=== PATIENT | female | born 1995 | race Caucasian/White ===

== ENCOUNTER 2020-03-24 21:06 | Emergency (ER) | payer OTHER ==
[2020-03-24 21:22] VITALS: BP 114/72; PULSE 94; TEMP 98.3; BMI 30.9
[2020-03-25 00:10] LABS: HEMOGLOBIN 12.4 GM/dL (10.7-15.3); MCH 27.9 pg (25.7-33.7); MCHC 33.4 g/dl (32.0-36.0); MEAN CELL VOLUME 83.5 fl (80-96); MEAN PLT VOLUME 7.8 fl (7.5-11.1); PLATELET COUNT 361 K/MM3 (134-434); RBC 4.43 M/mm3 (3.60-5.2); RDW 13.7 % (11.6-15.6); WHITE BLOOD COUNT 10.3 K/mm3 (4.0-10.0)
== END 2020-03-25 01:50 | disposition home or self-care (01) ==
LOC: JER 21:06
DX: O20.0 Threatened abortion (principal)
CPT/HCPCS: 36415; 76817-TC; 84702; 85027; 86850; 86900; 86901; 99284-25

== ENCOUNTER 2020-05-01 13:39 | Emergency (ER) | payer OTHER ==
[2020-05-01 13:44] VITALS: TEMP 97.2; BMI 29.7
[2020-05-01 14:17] LABS: BASO % 0.5 % (0-2.0); EOS % 0.7 % (0-4.5); HEMATOCRIT 36.1 % (32.4-45.2); LYMPH % 28.3 % (8-40); MCH 27.2 pg (25.7-33.7); MCHC 33.1 g/dl (32.0-36.0); MEAN CELL VOLUME 82.1 fl (80-96); MEAN PLT VOLUME 7.9 fl (7.5-11.1); MONO % 4.9 % (3.8-10.2); NEUT % 65.6 % (42.8-82.8); PLATELET COUNT 310 K/MM3 (134-434); RDW 13.5 % (11.6-15.6); WHITE BLOOD COUNT 12.5 K/mm3 (4.0-10.0)
[2020-05-01 14:19] VITALS: BP 117/72
[2020-05-01 14:50] LABS: POTASSIUM 3.6 mmol/L (3.5-5.1)
[2020-05-01 14:52] LABS: ALBUMIN 3.2 g/dl (3.4-5.0); BLOOD UREA NITROGEN 6.1 mg/dL (7-18); CALCIUM 9.1 mg/dL (8.5-10.1)
[2020-05-01 14:56] LABS: BILIRUBIN,TOTAL 0.3 mg/dL (0.2-1); CREATININE 0.5 mg/dL (0.55-1.3); TOT PROT 6.7 g/dl (6.4-8.2)
[2020-05-01 15:23] LABS: EPI CELLS >36 /uL (0-25.1); HYALINE CASTS 5 /uL (0-3.1); URINE APPEARANCE CLOUDY; URINE BACTERIA 1587 /uL (0-1359); URINE BILIRUBIN NEGATIVE (NEGATIVE); URINE COLOR YELLOW; URINE GLUCOSE (UA) NEGATIVE (NEGATIVE); URINE KETONE 1+ (NEGATIVE); URINE LEUK ESTERASE 1+ (NEGATIVE); URINE NITRITE NEGATIVE (NEGATIVE); URINE PROTEIN TRACE (NEGATIVE); URINE RBC 22 /uL (0-23.9); URINE WBC 61 /uL (0-25.8)
[2020-05-01 16:19] VITALS: PULSE 80
== END 2020-05-01 16:19 | disposition home or self-care (01) ==
LOC: JER 13:39
DX: O03.9 Complete or unspecified spontaneous abortion without complication (principal)
CPT/HCPCS: 36415; 76801-TC; 80053; 81003; 85025; 87086; 99284-25

== ENCOUNTER 2020-11-14 20:19 | Inpatient (IN) | payer OTHER ==
[2020-11-14 22:02] VITALS: BMI 35.0
[2020-11-14] MEDS ORDERED: AMPICILLIN SODIUM 2 GM VIAL ONE (22:06)
[2020-11-14] MEDS ORDERED: AMPICILLIN - 2 GM in SODIUM CHLORIDE 100 ML IVPB ONE (22:10)
[2020-11-14 22:31] LABS: BASO % 0.4 % (0-2.0); EOS % 0.2 % (0-4.5); HEMATOCRIT 35.6 % (32.4-45.2); HEMOGLOBIN 11.8 GM/dL (10.7-15.3); LYMPH % 14.1 % (8-40); MCH 27.2 pg (25.7-33.7); MCHC 33.2 g/dl (32.0-36.0); MEAN CELL VOLUME 81.9 fl (80-96); MEAN PLT VOLUME 8.6 fl (7.5-11.1); MONO % 6.1 % (3.8-10.2); NEUT % 79.2 % (42.8-82.8); PLATELET COUNT 307 10^3/uL (134-434); RBC 4.34 M/mm3 (3.60-5.2); RDW 14.3 % (11.6-15.6); WHITE BLOOD COUNT 16.4 K/mm3 (4.0-10.0)
[2020-11-14] MEDS ORDERED: OXYTOCIN 20 UNITS in 0.9% NS 20 UNIT/1,000 ML INFUS.BAG IV ONE (22:32)
[2020-11-14] MEDS: ELECTROLYTE-148 SOLN 1,000 ML IV SCH (22:45)
[2020-11-14 22:51] LABS: CALCIUM 8.6 mg/dL (8.5-10.1)
[2020-11-14 22:52] LABS: BLOOD UREA NITROGEN 8.2 mg/dL (7-18)
[2020-11-14 22:55] LABS: CREATININE 0.6 mg/dL (0.55-1.3)
[2020-11-15 00:03] LABS: INR 0.83 (0.83-1.09); PROTHROMBIN TIME (PATIENT) 10.2 SEC (9.7-13.0)
[2020-11-15] MEDS ORDERED: CITRIC ACID/SODIUM CITRATE 30 ML UNIT-DOSE CUP PO ONE (00:03)
[2020-11-15 00:06] LABS: ACTIVATED PTT 27.4 SECONDS (25.2-36.5)
[2020-11-15] MEDS ORDERED: morphine SULFATE/PF 1 MG/2 ML (2cc Syringe - QUVA) EP ONE (00:40)
[2020-11-15] MEDS ORDERED: KETOROLAC TROMETHAMINE 30 MG/1 ML VIAL ONE (00:43)
[2020-11-15] MEDS ORDERED: OXYTOCIN 10 UNIT/ML 10ML MDV ONE (00:43)
[2020-11-15] MEDS ORDERED: ONDANSETRON 4 MG/2 ML VIAL ONE (00:43)
[2020-11-15] MEDS ORDERED: ceFAZolin SODIUM 1 GM VIAL ONE ×2 (01:44→09:39)
[2020-11-15] MEDS ORDERED: AMPICILLIN - 1 GM in SODIUM CHLORIDE 100 ML IVPB SCH (02:00)
[2020-11-15] MEDS: OXYTOCIN 20 UNITS in 0.9% NS 20 UNIT/1,000 ML INFUS.BAG IV SCH (02:25)
[2020-11-15] MEDS ORDERED: SENNOSIDES/DOCUSATE COMBO (SENNA PLUS) TABLET (UD) PO PRN (02:27)
[2020-11-15] MEDS ORDERED: oxyCODONE HCL 5 MG TABLET PO PRN (02:27)
[2020-11-15] MEDS ORDERED: BENZOCAINE 28 GM HEMORRHOIDAL OINTMENT TP PRN (02:27)
[2020-11-15] MEDS ORDERED: METHYLERGONOVINE MALEATE 0.2 MG/1 ML AMP IM PRN (02:27)
[2020-11-15] MEDS ORDERED: BENZOCAINE 20% 57 GM BOTTLE TP PRN (02:27)
[2020-11-15] MEDS ORDERED: WITCH HAZEL 50% (TUCKS) 40 PAD/JAR PAD TP PRN (02:27)
[2020-11-15] MEDS ORDERED: IBUPROFEN 600 MG TABLET (FP) PO PRN (02:27)
[2020-11-15] MEDS ORDERED: ONDANSETRON 4 MG/2 ML VIAL IVPUSH PRN (02:34)
[2020-11-15] MEDS ORDERED: ACETAMINOPHEN 1000 MG/100 ML VIAL (NON FORMULARY) IVPB ONE (02:35)
[2020-11-15] MEDS ORDERED: OXYTOCIN 20 UNITS in 0.9% NS 20 UNIT/1,000 ML INFUS.BAG IV ONE (03:59)
[2020-11-15] MEDS: IBUPROFEN 800 MG/8 ML IJ IVPB PRN ×2 (04:33→14:26)
[2020-11-15] MEDS: FERROUS SO4 325 MG TABLET (FP) PO SCH ×2 (09:31→21:04)
[2020-11-15] MEDS: SIMETHICONE 80 MG TAB.CHEW (FP) PO PRN ×2 (09:31→22:09)
[2020-11-15] MEDS ORDERED: DEXTROSE 5%-WATER - 50 ML IVPB ONE (09:39)
[2020-11-15] MEDS: CEFAZOLIN 1 GM in DEXTROSE 5%-WATER - 50 ML IVPB SCH ×2 (09:44→18:12)
[2020-11-15] MEDS ORDERED: PRENATAL VITAMINS W/ FOLIC ACID TABLET (FP) PO SCH (10:00)
[2020-11-15] MEDS ORDERED: CEFAZOLIN 1 GM/D5W 1 GM/50 ML BAG IVPB SCH (10:00)
[2020-11-15] MEDS ORDERED: SODIUM CHLORIDE 1,000 ML IV SCH (22:15)
[2020-11-16] MEDS ORDERED: BISACODYL 10 MG SUPP.RECT RC PRN ×2 (02:30→09:24)
[2020-11-16] MEDS: CEFAZOLIN 1 GM in DEXTROSE 5%-WATER - 50 ML IVPB SCH (02:39)
[2020-11-16] MEDS ORDERED: ceFAZolin SODIUM 1 GM VIAL ONE (07:12)
[2020-11-16] MEDS ORDERED: LIDOCAINE HCL 2% JELLY (5 ML/TUBE) ONE (07:12)
[2020-11-16] MEDS ORDERED: LIDOCAINE HCL/PF 2% SDV 5ML VIAL ONE (07:12)
[2020-11-16] MEDS ORDERED: SUCCINYLCHOLINE CHLORIDE 200 MG/10 ML SYRINGE ONE (07:16)
[2020-11-16] MEDS ORDERED: PROPOFOL 20 ML ONE ×2 (07:17)
[2020-11-16] MEDS ORDERED: KETAMINE HCL 200 MG/20 ML VIAL ONE (07:17)
[2020-11-16] MEDS ORDERED: MIDAZOLAM HCL 2 MG/2 ML SINGLE DOSE VIAL ONE (07:17)
[2020-11-16] MEDS ORDERED: ACETAMINOPHEN INJECTION 100 ML IVPB ONE (08:20)
[2020-11-16] MEDS ORDERED: ceFAZolin SODIUM 1 GM VIAL IVPB ONE (08:48)
[2020-11-16] MEDS ORDERED: METHYLERGONOVINE MALEATE 0.2 MG/1 ML AMP IM PRN (09:24)
[2020-11-16] MEDS ORDERED: BENZOCAINE 20% 57 GM BOTTLE TP PRN (09:24)
[2020-11-16] MEDS ORDERED: IBUPROFEN 800 MG/8 ML IJ IVPB PRN (09:24)
[2020-11-16] MEDS ORDERED: ELECTROLYTE-148 SOLN 1,000 ML IV SCH (09:24)
[2020-11-16] MEDS ORDERED: oxyCODONE HCL 5 MG TABLET PO PRN (09:24)
[2020-11-16] MEDS ORDERED: SODIUM CHLORIDE 1,000 ML IV SCH (09:24)
[2020-11-16] MEDS ORDERED: BENZOCAINE 28 GM HEMORRHOIDAL OINTMENT TP PRN (09:24)
[2020-11-16] MEDS ORDERED: ONDANSETRON 4 MG/2 ML VIAL IVPUSH PRN (09:24)
[2020-11-16] MEDS ORDERED: WITCH HAZEL 50% (TUCKS) 40 PAD/JAR PAD TP PRN (09:24)
[2020-11-16] MEDS ORDERED: LACTATED RINGERS SOLUTION 1,000 ML IV SCH (11:30)
[2020-11-16 12:38] LABS: BASO % 0.2 % (0-2.0); EOS % 0.2 % (0-4.5); HEMATOCRIT 27.5 % (32.4-45.2); LYMPH % 12.3 % (8-40); MCH 27.5 pg (25.7-33.7); MCHC 32.9 g/dl (32.0-36.0); MEAN CELL VOLUME 83.5 fl (80-96); MONO % 5.2 % (3.8-10.2); NEUT % 82.1 % (42.8-82.8); PLATELET COUNT 279 10^3/uL (134-434); RBC 3.29 M/mm3 (3.60-5.2); RDW 14.8 % (11.6-15.6); WHITE BLOOD COUNT 17.1 K/mm3 (4.0-10.0)
[2020-11-16] MEDS: PRENATAL VITAMINS W/ FOLIC ACID TABLET (FP) PO SCH (16:44)
[2020-11-16] MEDS: FERROUS SO4 325 MG TABLET (FP) PO SCH (16:44)
[2020-11-16] MEDS: IBUPROFEN 600 MG TABLET (FP) PO PRN ×2 (16:44→21:51)
[2020-11-16] MEDS: ELECTROLYTE-148 SOLN 1,000 ML IV SCH (20:29)
[2020-11-16] MEDS: OXYTOCIN 20 UNITS in 0.9% NS 20 UNIT/1,000 ML INFUS.BAG IV SCH (20:29)
[2020-11-16] MEDS: SENNOSIDES/DOCUSATE COMBO (SENNA PLUS) TABLET (UD) PO PRN (21:50)
[2020-11-16] MEDS: SIMETHICONE 80 MG TAB.CHEW (FP) PO PRN (21:50)
[2020-11-17] MEDS: FERROUS SO4 325 MG TABLET (FP) PO SCH (08:19)
[2020-11-17] MEDS: IBUPROFEN 600 MG TABLET (FP) PO PRN ×2 (08:20→21:28)
[2020-11-17] MEDS: SIMETHICONE 80 MG TAB.CHEW (FP) PO PRN (08:20)
[2020-11-17] MEDS: PRENATAL VITAMINS W/ FOLIC ACID TABLET (FP) PO SCH (10:53)
[2020-11-17] MEDS: SENNOSIDES/DOCUSATE COMBO (SENNA PLUS) TABLET (UD) PO PRN (21:28)
[2020-11-18] MEDS: FERROUS SO4 325 MG TABLET (FP) PO SCH ×3 (09:00→18:22)
[2020-11-18 09:13] LABS: BASO % 0.5 % (0-2.0); EOS % 1.7 % (0-4.5); HEMATOCRIT 26.6 % (32.4-45.2); LYMPH % 19.1 % (8-40); MCH 28.2 pg (25.7-33.7); MCHC 33.8 g/dl (32.0-36.0); MEAN CELL VOLUME 83.5 fl (80-96); MONO % 4.6 % (3.8-10.2); NEUT % 74.1 % (42.8-82.8); PLATELET COUNT 301 10^3/uL (134-434); RBC 3.18 M/mm3 (3.60-5.2); RDW 14.7 % (11.6-15.6); WHITE BLOOD COUNT 11.2 K/mm3 (4.0-10.0)
[2020-11-18] MEDS: PRENATAL VITAMINS W/ FOLIC ACID TABLET (FP) PO SCH (09:45)
[2020-11-18] MEDS: IBUPROFEN 600 MG TABLET (FP) PO PRN (09:46)
[2020-11-18] MEDS: SIMETHICONE 80 MG TAB.CHEW (FP) PO PRN (09:46)
[2020-11-19 09:21] VITALS: BP 115/71; PULSE 92; TEMP 98.6
[2020-11-19] MEDS: FERROUS SO4 325 MG TABLET (FP) PO SCH (10:30)
[2020-11-19] MEDS: PRENATAL VITAMINS W/ FOLIC ACID TABLET (FP) PO SCH (10:30)
[2020-11-19] MEDS: IBUPROFEN 600 MG TABLET (FP) PO PRN (11:09)
== END 2020-11-19 14:50 | disposition home or self-care (01) | DRG 540 ==
LOC: JDEL 20:19 → JLDR 21:25 → J3W 11-15 04:03
PROVIDERS: ADMIT Obstetrics & Gynecology; ATTEND Obstetrics & Gynecology
PROC: 10D00Z1 Extraction of Products of Conception, Low, Open Approach (ICD-10-PCS; principal; 2020-11-15)
PROC: 3E1K78Z Irrigation of Genitourinary Tract using Irrigating Substance, Via Natural or Artificial Opening (ICD-10-PCS; 2020-11-15)
PROC: 10907ZC Drainage of Amniotic Fluid, Therapeutic from Products of Conception, Via Natural or Artificial Opening (ICD-10-PCS; 2020-11-15)
PROC: 0TJB8ZZ Inspection of Bladder, Via Natural or Artificial Opening Endoscopic (ICD-10-PCS; 2020-11-16)
PROC: BT1FZZZ Fluoroscopy of Left Kidney, Ureter and Bladder (ICD-10-PCS; 2020-11-16)
PROC: BT00ZZZ Plain Radiography of Bladder (ICD-10-PCS; 2020-11-16)
DX: O99.824 Streptococcus B carrier state complicating childbirth (principal); O32.4XX0 Maternal care for high head at term, not applicable or unspecified; O33.9 Maternal care for disproportion, unspecified; R31.0 Gross hematuria; Z3A.38 38 weeks gestation of pregnancy; Z37.0 Single live birth
CPT/HCPCS: 36415; 80048; 85025; 85610; 85730; 86780; 86850; 86900; 86901; 88307-TC; 94760; C9803; J0131; U0003; U0005

== ENCOUNTER 2022-09-15 07:45 | Inpatient (IN) | payer OTHER ==
[2022-09-15] MEDS: ELECTROLYTE-148 SOLN 1,000 ML IV SCH ×2 (10:00→13:30)
[2022-09-15 12:48] VITALS: BMI 38.0
[2022-09-15] MEDS ORDERED: CITRIC ACID/SODIUM CITRATE 30 ML UNIT-DOSE CUP PO ONE (13:13)
[2022-09-15] MEDS ORDERED: morphine SULFATE/PF 1 MG/2 ML (2cc Syringe - QUVA) ONE (13:20)
[2022-09-15] MEDS ORDERED: FENTANYL CITRATE/PF 50 MCG/ML VIAL ONE ×2 (13:20→14:42)
[2022-09-15] MEDS ORDERED: LIDOCAINE HCL/PF 2% SDV 5ML VIAL ONE (14:42)
[2022-09-15] MEDS ORDERED: ePHEDrine SULFATE 50 MG/1 ML AMPULE ONE (14:45)
[2022-09-15] MEDS ORDERED: METHYLERGONOVINE MALEATE 0.2 MG/1 ML AMP IM PRN (15:30)
[2022-09-15] MEDS ORDERED: SENNOSIDES/DOCUSATE COMBO (SENNA PLUS) TABLET (UD) PO PRN (15:30)
[2022-09-15] MEDS ORDERED: ACETAMINOPHEN 325 MG TABLET (FP) PO PRN (15:30)
[2022-09-15] MEDS ORDERED: OXYTOCIN 20 UNITS in 0.9% NS 20 UNIT/1,000 ML INFUS.BAG IV ONE (15:45)
[2022-09-15] MEDS: OXYTOCIN 20 UNITS in 0.9% NS 20 UNIT/1,000 ML INFUS.BAG IV SCH (16:30)
[2022-09-15] MEDS: FERROUS SO4 325 MG TABLET (FP) PO SCH (17:41)
[2022-09-15] MEDS: IBUPROFEN 800 MG/8 ML IJ IVPB PRN (22:07)
[2022-09-16] MEDS: OXYTOCIN 20 UNITS in 0.9% NS 20 UNIT/1,000 ML INFUS.BAG IV SCH ×2 (01:15→17:43)
[2022-09-16] MEDS ORDERED: oxyCODONE HCL 5 MG TABLET PO PRN (03:30)
[2022-09-16] MEDS: IBUPROFEN 800 MG/8 ML IJ IVPB PRN (06:09)
[2022-09-16 06:27] VITALS: RESP 18
[2022-09-16 08:30] LABS: BASO % 0.1 % (0-2.0); EOS % 1.1 % (0-4.5); HEMATOCRIT 28.8 % (32.4-45.2); HEMOGLOBIN 9.4 GM/dL (10.7-15.3); LYMPH % 9.4 % (8-40); MCH 25.4 pg (25.7-33.7); MCHC 32.5 g/dl (32.0-36.0); MEAN PLT VOLUME 8.7 fl (7.5-11.1); MONO % 3.8 % (3.8-10.2); NEUT % 85.6 % (42.8-82.8); PLATELET COUNT 267 10^3/uL (134-434); RBC 3.69 M/mm3 (3.60-5.2); RDW 15.7 % (11.6-15.6); WHITE BLOOD COUNT 13.9 K/mm3 (4.0-10.0)
[2022-09-16] MEDS: guaiFENesin 200 MG/10 ML 10 ML UNIT-DOSE CUPS PO PRN ×3 (09:32→22:02)
[2022-09-16] MEDS: FERROUS SO4 325 MG TABLET (FP) PO SCH ×2 (09:32→17:40)
[2022-09-16] MEDS: PRENATAL VITAMINS W/ FOLIC ACID TABLET (FP) PO SCH (09:32)
[2022-09-16] MEDS ORDERED: BISACODYL 10 MG SUPP.RECT RC PRN (15:30)
[2022-09-16] MEDS: IBUPROFEN 600 MG TABLET (FP) PO PRN (22:02)
[2022-09-16] MEDS: SIMETHICONE 80 MG TAB.CHEW (FP) PO PRN (22:03)
[2022-09-17] MEDS: FERROUS SO4 325 MG TABLET (FP) PO SCH ×2 (08:26→18:00)
[2022-09-17] MEDS: IBUPROFEN 600 MG TABLET (FP) PO PRN ×2 (08:27→20:58)
[2022-09-17] MEDS: guaiFENesin 200 MG/10 ML 10 ML UNIT-DOSE CUPS PO PRN (08:29)
[2022-09-17] MEDS: PRENATAL VITAMINS W/ FOLIC ACID TABLET (FP) PO SCH (09:24)
[2022-09-17] MEDS: SIMETHICONE 80 MG TAB.CHEW (FP) PO PRN (20:59)
[2022-09-18] MEDS: IBUPROFEN 600 MG TABLET (FP) PO PRN (08:20)
[2022-09-18] MEDS: FERROUS SO4 325 MG TABLET (FP) PO SCH (08:20)
[2022-09-18 08:36] LABS: BASO % 0.2 % (0-2.0); EOS % 1.7 % (0-4.5); HEMATOCRIT 29.8 % (32.4-45.2); HEMOGLOBIN 9.5 GM/dL (10.7-15.3); LYMPH % 19.4 % (8-40); MCH 24.9 pg (25.7-33.7); MCHC 31.9 g/dl (32.0-36.0); MEAN CELL VOLUME 78.1 fl (80-96); MONO % 4.8 % (3.8-10.2); NEUT % 73.9 % (42.8-82.8); PLATELET COUNT 325 10^3/uL (134-434); RBC 3.82 M/mm3 (3.60-5.2); WHITE BLOOD COUNT 12.2 K/mm3 (4.0-10.0)
[2022-09-18] MEDS: PRENATAL VITAMINS W/ FOLIC ACID TABLET (FP) PO SCH (09:04)
[2022-09-18 09:23] VITALS: BP 113/77; PULSE 84; TEMP 97.8
[2022-09-18] MEDS: ELECTROLYTE-148 SOLN 1,000 ML IV SCH (10:29)
== END 2022-09-18 11:55 | disposition home or self-care (01) | DRG 540 ==
LOC: JDEL 07:45 → JLDR 08:55 → J3W 17:31
PROVIDERS: ADMIT Obstetrics & Gynecology; ATTEND Obstetrics & Gynecology
PROC: 10D00Z1 Extraction of Products of Conception, Low, Open Approach (ICD-10-PCS; principal; 2022-09-15)
DX: O34.219 Maternal care for unspecified type scar from previous cesarean delivery (principal); Z3A.39 39 weeks gestation of pregnancy; Z37.0 Single live birth
CPT/HCPCS: 36415; 59025; 80053; 85025; 85610; 86780; 86850; 86870; 86900; 86901; 86902; 88307-TC

== ENCOUNTER 2023-11-04 08:30 | Emergency (ER) | payer OTHER ==
[2023-11-04 08:42] VITALS: BP 112/79; PULSE 89; RESP 18; TEMP 98.2; BMI 30.9
[2023-11-04] MEDS ORDERED: DIPHTH,PERTUSS(ACELL),TET 0.5 ML DISP.SYRIN IM ONE (10:45)
[2023-11-04] MEDS: DIPHTH,PERTUSS(ACELL),TET 0.5 ML DISP.SYRIN IM ONE (10:52)
== END 2023-11-04 10:54 | disposition home or self-care (01) ==
LOC: JER 08:30
PROC: 3E0234Z Introduction of Serum, Toxoid and Vaccine into Muscle, Percutaneous Approach (ICD-10-PCS; principal; 2023-11-04)
DX: L03.012 Cellulitis of left finger (principal); M79.645 Pain in left finger(s); Z23 Encounter for immunization
CPT/HCPCS: 73130-TC-LT-FY; 90471; 90715; 99283-25